=== PATIENT | male | born 1975 | race Caucasian/White ===

== ENCOUNTER 2021-06-23 10:41 | Emergency (ER) | payer BC, SELFPAY ==
[~2021-06-23] VITALS: Ht 162.6 cm; Wt 65.8 kg
[~2021-06-23 10:41] MED LIST: AMOX-426
[2021-06-23 10:45] VITALS: BP_SYST 161
--- NOTE | 2021-06-23 10:45 | NUR ---
Patient to ER TENT2 to gown for evaluation. Side rails up.
--- NOTE | 2021-06-23 11:00 | NUR ---
ER at bedside examining patient.
--- NOTE | 2021-06-23 11:05 | NUR ---
SUNIL COLLECTED AND SENT
[2021-06-23] MEDS ORDERED: PRED20TA PO (12:39)
[2021-06-23] MEDS ORDERED: ALBU8.5H8 INH (12:39)
[2021-06-23 12:53] VITALS: BP_SYST 152
--- NOTE | 2021-06-23 12:54 | NUR ---
Patient given written and verbal discharge instructions and verbalizes understanding. ER MD discussed with patient the results and treatment provided. Patient in stable condition. ID arm band removed. No Rx given. Patient educated on pain management and to follow up with PMD. Pain Scale 0/10 . Opportunity for questions provided and answered. Medication side effect fact sheet provided.
== END 2021-06-23 12:53 | disposition home or self-care (01) ==
LOC: SED 10:41
DX: U07.1 COVID-19 (principal); J40 Bronchitis, not specified as acute or chronic; Z79.899 Other long term (current) drug therapy
CPT/HCPCS: 36415; 71045; 99284